=== PATIENT | male | born 1970 | race Two or more races ===

== ENCOUNTER 2018-04-02 18:29 | Emergency (ER) | payer OTHER ==
[~2018-04-02] VITALS: Ht 167.6 cm; Wt 80.7 kg
== END 2018-04-02 22:56 | disposition home or self-care (01) ==
LOC: ER 18:29
DX: S83.8X2A Sprain of other specified parts of left knee, initial encounter (principal); X50.3XXA Overexertion from repetitive movements, initial encounter; Y93.89 Activity, other specified; Y92.89 Other specified places as the place of occurrence of the external cause; Y99.8 Other external cause status

== ENCOUNTER 2018-07-07 20:45 | Emergency (ER) | payer OTHER ==
[~2018-07-07] VITALS: Ht 167.6 cm; Wt 80.3 kg
[2018-07-08] MEDS ORDERED: ZOFRAN4 MG PO (03:43)
[2018-07-08] MEDS ORDERED: LEVSIN/SL0.125 MG SL (03:43)
[2018-07-08] MEDS ORDERED: INTESTINEX680 M1 PO (03:43)
== END 2018-07-08 04:25 | disposition home or self-care (01) ==
LOC: ER 20:45
DX: K52.9 Noninfective gastroenteritis and colitis, unspecified (principal)

== ENCOUNTER 2019-03-18 15:38 | Emergency (ER) | payer OTHER ==
[~2019-03-18] VITALS: Ht 167.6 cm; Wt 80.3 kg
[~2019-03-18 15:38] MED LIST: INTESTINEX680 M1 PO; LEVSIN/SL0.125 MG SL; ZOFRAN4 MG PO
== END 2019-03-18 22:14 | disposition home or self-care (01) ==
LOC: ER 15:38
DX: J45.998 Other asthma (principal); B96.0 Mycoplasma pneumoniae [M. pneumoniae] as the cause of diseases classified elsewhere; J11.1 Influenza due to unidentified influenza virus with other respiratory manifestations

== ENCOUNTER 2020-08-05 09:56 | Emergency (ER) | payer OTHER ==
[~2020-08-05] VITALS: Ht 167.6 cm; Wt 85.7 kg
[2020-08-05] MEDS ORDERED: BENZONATATE200 M1 PO (15:07)
== END 2020-08-05 15:58 | disposition home or self-care (01) ==
LOC: ER 09:56
DX: R05 Cough (principal); Z11.52 Encounter for screening for COVID-19

== ENCOUNTER 2021-01-06 17:27 | Emergency (ER) | payer OTHER ==
[~2021-01-06] VITALS: Ht 167.6 cm; Wt 88.5 kg
[~2021-01-06 17:27] MED LIST changes: +BENZONATATE200 M1 PO
== END 2021-01-06 23:33 | disposition home or self-care (01) ==
LOC: ER 17:27
DX: R51.9 Headache, unspecified (principal); I10 Essential (primary) hypertension

== ENCOUNTER 2021-04-09 22:10 | Emergency (ER) | payer OTHER ==
[~2021-04-09] VITALS: Ht 167.6 cm; Wt 81.6 kg
[2021-04-10] MEDS ORDERED: ZOFRAN8 MG PO ×2 (03:26)
[2021-04-10] MEDS ORDERED: INTESTINEX680 M1 PO (03:26)
== END 2021-04-10 03:39 | disposition home or self-care (01) ==
LOC: ER 22:10
DX: A05.9 Bacterial foodborne intoxication, unspecified (principal)

== ENCOUNTER → 2022-01-21 | Emergency (ER) | payer OTHER ==
[~2022-01-21] VITALS: Ht 167.6 cm; Wt 81.6 kg
[~2022-01-21] MED LIST changes: +PARA PRESION; +ZOFRAN8 MG PO
== END | disposition home or self-care (01) ==
LOC: ER 20:00
DX: J06.9 Acute upper respiratory infection, unspecified (principal); Z20.822 Contact with and (suspected) exposure to COVID-19

== ENCOUNTER 2024-01-27 17:36 | Emergency (ER) | payer OTHER ==
[~2024-01-27] VITALS: Ht 167.6 cm; Wt 83.5 kg
[2024-01-27] MEDS ORDERED: ORPHENADRINE CITRATE 30 MG/ML AMPUL IM ONE (18:15)
[2024-01-27] MEDS ORDERED: KETOROLAC TROMETHAMINE 60 MG VIAL IM ONE (18:15)
[2024-01-27] MEDS ORDERED: NORFLEX100MG PO (19:07)
[2024-01-27] MEDS ORDERED: KETO10TA2 PO (19:07)
== END 2024-01-27 19:50 | disposition home or self-care (01) ==
LOC: ER 17:36
DX: S49.82XA Other specified injuries of left shoulder and upper arm, initial encounter (principal); V19.9XXA Pedal cyclist (driver) (passenger) injured in unspecified traffic accident, initial encounter; Y93.55 Activity, bike riding; Y92.413 State road as the place of occurrence of the external cause; S29.8XXA Other specified injuries of thorax, initial encounter

== ENCOUNTER 2024-06-12 16:26 | Emergency (ER) | payer OTHER ==
[~2024-06-12] VITALS: Ht 167.6 cm; Wt 85.7 kg
[~2024-06-12 16:26] MED LIST changes: +KETO10TA2 PO; +NORFLEX100MG PO
[2024-06-12] MEDS ORDERED: ZETIA10 MG (17:04)
[2024-06-12] MEDS ORDERED: TOPROL XL25 M1 (17:04)
[2024-06-12] MEDS ORDERED: COZAAR25 MG PO (17:04)
[2024-06-12] MEDS ORDERED: FENOFIBRATE50 MG (17:05)
[2024-06-12] MEDS ORDERED: FAMOtidine 10 MG/ML (4ML VIAL) IV STA (18:26)
[2024-06-12] MEDS ORDERED: MAG HYDROX/ALUMINUM HYD/SIMETH 30 ML BLIST.PACK PO STA (18:30)
[2024-06-12] MEDS ORDERED: FAMOTIDINE/PF 20 MG/2 ML VIAL ONE (18:41)
[2024-06-12] MEDS ORDERED: MAG HYDROX/ALUMINUM HYD/SIMETH 30 ML BLIST.PACK PO ONE (18:41)
[2024-06-12 19:32] LABS: HEMATOCRIT 42.5 % (39.0-48.0); HEMOGLOBIN 14.6 g/dL (13-16.00); MEAN CELL VOLUME 84.7 fL (80.0-100.00); MEAN CORPUSCULAR HEMOGLOBIN 29.1 pg (27.00-32.0); MEAN CORPUSCULAR HGB CONC 34.3 g/dl (32.0-36.0); PLATELET COUNT 165 K/uL (150-450); RED BLOOD COUNT 5.02 M/uL (4.00-6.00); RED CELL DISTRIBUTION WIDTH 13.7 % (11.5-14.5)
[2024-06-12 19:57] LABS: ALBUMIN 4.5 gm/dL (3.4-5.0); BILIRUBIN TOTAL 0.61 mg/dL (0.3-1.2); CALCIUM 10.3 mg/dL (8.5-10.1); CREATININE SERUM 1.21 mg/dL (0.70-1.30); GFR 62.26; GLOBULINA 3.4 G/DL (2.4-3.5); POTASSIUM 4.38 mEq/L (3.5-5.1); TOTAL PROTEIN 7.9 gm/dL (6.4-8.2)
[2024-06-12] MEDS ORDERED: ACID REDUCER20 M1 PO (20:26)
[2024-06-12] MEDS ORDERED: TAGAMET HB200 MG PO (20:26)
== END 2024-06-12 21:00 | disposition home or self-care (01) ==
LOC: ER 16:26
PROVIDERS: General Practice
DX: K21.9 Gastro-esophageal reflux disease without esophagitis (principal); I10 Essential (primary) hypertension

== ENCOUNTER → 2025-01-13 | Emergency (ER) | payer OTHER ==
[~2025-01-13] VITALS: Ht 167.6 cm; Wt 83.0 kg
[~2025-01-13] MED LIST changes: +ACID REDUCER20 M1 PO; +COZAAR25 MG PO; +FENOFIBRATE50 MG; +TAGAMET HB200 MG PO; +TOPROL XL25 M1; +ZETIA10 MG
== END | disposition left against medical advice (07) ==
LOC: ER 21:06
DX: Z53.21 Procedure and treatment not carried out due to patient leaving prior to being seen by health care provider (principal)